=== PATIENT | male | born 1930 | race Caucasian/White ===

== ENCOUNTER 2017-04-20 21:56 | Inpatient (IN) | payer OTHER ==
[~2017-04-20] VITALS: Ht 177.8 cm; Wt 92.2 kg
[~2017-04-20 21:56] MED LIST: FLOMAX0.4 MG PO; LISINOPRIL20 MG PO; NEXIUM40 MG PO; PERCOCET 5/31 TABLET PO; PRINIVIL10 MG PO; SERTRALINE HCL50 MG PO; TAMSULOSIN HCL0.4 MG PO
[2017-04-20] MEDS ORDERED: LEVOTHYROXINE25 MCG PO (22:06)
[2017-04-20] MEDS ORDERED: METFORMIN HCL500 M1 PO (22:06)
[2017-04-20] MEDS ORDERED: CIPROFLOXACIN250 MG PO (22:06)
[2017-04-20] MEDS ORDERED: CELECOXIB100 MG PO (22:06)
[2017-04-20 22:56] LABS: HEMATOCRIT 36.3 % (38.0-50.0); MCH 31.4 PG (29.0-34.0); MCHC 33.6 G/DL (30.0-36.0); MCV 93.3 FL (86-99); MEAN PLAT.VOLUME 10.2 uM^3 (9.0-12.4); PLATELET COUNT 164 K/uL (156-360); RBC DIS.WIDTH-CV 14.1 % (11.8-14.6); RBC DIS.WIDTH-SD 48.1 % (39-53); RED BLOOD COUNT 3.89 M/uL (4.00-5.50); WHITE BLOOD COUNT 7.8 K/uL (4.1-10.2)
[2017-04-20 22:59] LABS: ADD MIUA? YES; BILIRUBIN NEGATIVE; BLOOD MODERATE; COLOR YELLOW ((YELLOW)); GLUCOSE (STRIP) NEGATIVE; KETONES NEGATIVE; LEUKOCYTES NEGATIVE; NITRITE NEGATIVE; PROTEIN (STRIP) 30; SPECIFIC GRAVITY 1.013 (1.000-1.030); UROBILINOGEN 0.2 MG/DL (0.2-1.0)
[2017-04-20 23:04] LABS: BACTERIA NONE SEEN /HPF; EPITHELIAL CELLS RARE /HPF; MUCUS TRACE /LPF; RED BLOOD CELLS 20-30 /HPF (0-5); UCUL ADDED? NO; WHITE BLOOD CELLS 0-5 /HPF (0-5)
[2017-04-20 23:09] LABS: CHLORIDE 105 mEq/L (99-109); POTASSIUM 4.5 mEq/L (3.7-5.4); SODIUM 139 mEq/L (136-147)
[2017-04-20 23:11] LABS: GLUCOSE 123 mg/dL (70-99)
[2017-04-20 23:13] LABS: ANION GAP 14 MEQ/L (2-14); TOTAL BILIRUBIN 0.7 mg/dL (0.0-1.0)
[2017-04-20 23:15] LABS: ALKALINE PHOSPHATASE 42 IU/L (3-129); GFR ESTIMATE (CALCULATED) 19 mL/min/
[2017-04-20 23:16] LABS: UREA NITROGEN (BUN) 40 mg/dL (9-23)
[2017-04-21] MEDS ORDERED: SUPER MULTIVIT1 EACH PO (01:50)
[2017-04-21] MEDS ORDERED: ASCORBIC ACID500 M3 PO (01:50)
[2017-04-21 04:00] LABS: URIC ACID 10.4 mg/dL (3.1-9.2)
[2017-04-21 04:36] LABS: POINT-OF-CARE METER ID UU13113702
[2017-04-21 04:44] VITALS: BP 178/83
[2017-04-21 06:51] LABS: ANION GAP 8 MEQ/L (2-14); CHLORIDE 106 MEQ/L (99-109); GFR ESTIMATE (CALCULATED) 22 mL/min/; GLUCOSE 104 mg/dL (70-99); POTASSIUM 4.7 MEQ/L (3.7-5.4); SAMPLE HEMOLYSIS CHECK 0; SAMPLE ICTERIC CHECK 0; SAMPLE LIPEMIA CHECK 0; SODIUM 142 MEQ/L (136-147); UREA NITROGEN (BUN) 38 mg/dL (9-23)
[2017-04-21 08:30] VITALS: BP 170/85
[2017-04-21 08:49] LABS: POINT-OF-CARE METER ID UU14188625
[2017-04-21 12:21] VITALS: BP 172/83
[2017-04-21 13:05] LABS: POINT-OF-CARE METER ID UU14188625
[2017-04-21 16:00] VITALS: BP 120/60
[2017-04-21 17:42] LABS: POINT-OF-CARE METER ID UU13113717
[2017-04-21 20:00] VITALS: BP 142/67
[2017-04-21 21:24] LABS: POINT-OF-CARE METER ID UU13113717
[2017-04-21 23:57] VITALS: BP 143/69
[2017-04-22 03:41] VITALS: BP 110/72
[2017-04-22 06:21] LABS: HEMATOCRIT 35.1 % (38.0-50.0); MCH 30.8 PG (29.0-34.0); MCHC 32.2 G/DL (30.0-36.0); MCV 95.6 FL (86-99); MEAN PLAT.VOLUME 10.2 uM^3 (9.0-12.4); PLATELET COUNT 179 K/uL (156-360); RBC DIS.WIDTH-CV 14.1 % (11.8-14.6); RBC DIS.WIDTH-SD 49.6 % (39-53); RED BLOOD COUNT 3.67 M/uL (4.00-5.50); WHITE BLOOD COUNT 6.1 K/uL (4.1-10.2)
[2017-04-22 07:40] VITALS: BP 179/71
[2017-04-22 08:42] LABS: POINT-OF-CARE METER ID UU14174225
[2017-04-22 08:59] LABS: POINT-OF-CARE METER ID UU14174225
[2017-04-22 11:58] VITALS: BP 141/75
[2017-04-22 12:03] LABS: POINT-OF-CARE METER ID UU13113717
[2017-04-22 15:49] VITALS: BP 131/67
[2017-04-22 19:07] VITALS: BP 117/61
[2017-04-22 21:14] LABS: POINT-OF-CARE METER ID UU14188625
[2017-04-22 23:49] VITALS: BP 136/92
[2017-04-23 03:56] VITALS: BP 150/71
[2017-04-23 07:07] LABS: ALKALINE PHOSPHATASE 35 IU/L (3-129); ANION GAP 10 MEQ/L (2-14); CHLORIDE 106 MEQ/L (99-109); GFR ESTIMATE (CALCULATED) 38 mL/min/; GLUCOSE 125 mg/dL (70-99); POTASSIUM 3.9 MEQ/L (3.7-5.4); SAMPLE HEMOLYSIS CHECK 0; SAMPLE ICTERIC CHECK 0; SAMPLE LIPEMIA CHECK 0; SODIUM 139 MEQ/L (136-147); TOTAL BILIRUBIN 0.6 MG/DL (0.0-1.0); UREA NITROGEN (BUN) 30 mg/dL (9-23)
[2017-04-23 07:52] VITALS: BP 154/83
[2017-04-23 09:17] LABS: HEMATOCRIT 32.7 % (38.0-50.0); MCH 32.2 PG (29.0-34.0); MCHC 33.3 G/DL (30.0-36.0); MCV 96.5 FL (86-99); MEAN PLAT.VOLUME 10.6 uM^3 (9.0-12.4); PLATELET COUNT 167 K/uL (156-360); RBC DIS.WIDTH-CV 14.2 % (11.8-14.6); RBC DIS.WIDTH-SD 50.1 % (39-53); RED BLOOD COUNT 3.39 M/uL (4.00-5.50); WHITE BLOOD COUNT 6.5 K/uL (4.1-10.2)
[2017-04-23 11:28] VITALS: BP 152/80
[2017-04-23 15:50] VITALS: BP 153/79
[2017-04-23 18:46] VITALS: BP 135/67
[2017-04-24 00:27] VITALS: BP 134/72
[2017-04-24 04:00] VITALS: BP 118/59
[2017-04-24 07:47] VITALS: BP 130/75
[2017-04-24 10:00] LABS: ANION GAP 9 MEQ/L (2-14); CHLORIDE 109 MEQ/L (99-109); SAMPLE HEMOLYSIS CHECK 0; SAMPLE ICTERIC CHECK 0; SAMPLE LIPEMIA CHECK 0; SODIUM 140 MEQ/L (136-147)
[2017-04-24 10:10] LABS: GFR ESTIMATE (CALCULATED) 41 mL/min/; UREA NITROGEN (BUN) 27 mg/dL (9-23)
[2017-04-24 10:11] LABS: GLUCOSE 191 mg/dL (70-99)
[2017-04-24 15:55] VITALS: BP 141/69
[2017-04-24 23:40] VITALS: BP 136/68
[2017-04-25 06:31] LABS: EOSINOPHIL (%) 2.6 % (0-5); EOSINOPHIL COUNT 0.2 K/uL (0-0.3); HEMATOCRIT 32.2 % (38.0-50.0); IMMATURE GRANULOCYTE (%) 1.5 % (0.0-0.7); IMMATURE GRANULOCYTE COUNT 0.1 K/uL; INSTRUMENT ABS NEUTROPHIL CT 5.4 K/uL; LYMPHOCYTE COUNT 0.6 K/uL (1.0-2.8); MCH 30.7 PG (29.0-34.0); MCV 96.1 FL (86-99); MEAN PLAT.VOLUME 10.4 uM^3 (9.0-12.4); MONOCYTE (%) 14.4 % (3-12); MONOCYTE COUNT 1.1 K/uL (0-0.8); NEUTROPHIL (%) 72.9 % (45-76); NEUTROPHIL COUNT 5.4 K/uL (1.8-6.4); PLATELET COUNT 191 K/uL (156-360); RBC DIS.WIDTH-CV 14.1 % (11.8-14.6); RBC DIS.WIDTH-SD 49.7 % (39-53); RED BLOOD COUNT 3.35 M/uL (4.00-5.50); WHITE BLOOD COUNT 7.4 K/uL (4.1-10.2)
[2017-04-25 06:52] VITALS: BP 137/67
[2017-04-25 08:24] LABS: ANION GAP 11 MEQ/L (2-14); CHLORIDE 108 MEQ/L (99-109); GFR ESTIMATE (CALCULATED) 34 mL/min/; POTASSIUM 3.8 MEQ/L (3.7-5.4); SAMPLE HEMOLYSIS CHECK 0; SAMPLE ICTERIC CHECK 0; SAMPLE LIPEMIA CHECK 0; SODIUM 140 MEQ/L (136-147); UREA NITROGEN (BUN) 32 mg/dL (9-23)
[2017-04-25 08:25] LABS: GLUCOSE 113 mg/dL (70-99)
[2017-04-25 15:10] VITALS: BP 157/73
[2017-04-26 00:11] VITALS: BP 127/64
[2017-04-26 07:17] VITALS: BP 157/65
[2017-04-26 09:23] LABS: HEMATOCRIT 33.9 % (38.0-50.0); MCHC 34.2 G/DL (30.0-36.0); MCV 93.6 FL (86-99); MEAN PLAT.VOLUME 10.3 uM^3 (9.0-12.4); RBC DIS.WIDTH-CV 13.6 % (11.8-14.6); RBC DIS.WIDTH-SD 46.8 % (39-53); RED BLOOD COUNT 3.62 M/uL (4.00-5.50); WHITE BLOOD COUNT 6.1 K/uL (4.1-10.2)
[2017-04-26 09:31] LABS: PLATELET COUNT 254 K/uL (156-360)
[2017-04-26 09:50] LABS: ANION GAP 12 MEQ/L (2-14); CHLORIDE 109 MEQ/L (99-109); GFR ESTIMATE (CALCULATED) 47 mL/min/; POTASSIUM 3.9 MEQ/L (3.7-5.4); SAMPLE HEMOLYSIS CHECK 0; SAMPLE ICTERIC CHECK 0; SAMPLE LIPEMIA CHECK 0; SODIUM 140 MEQ/L (136-147); UREA NITROGEN (BUN) 37 mg/dL (9-23)
[2017-04-26 09:55] LABS: GLUCOSE 180 mg/dL (70-99)
[2017-04-26 15:51] VITALS: BP 146/76
[2017-04-27 00:15] VITALS: BP 154/81
[2017-04-27 08:00] VITALS: BP 143/75
[2017-04-27 16:00] VITALS: BP 143/90
[2017-04-28 06:22] LABS: HEMATOCRIT 31.3 % (38.0-50.0); MCH 31.8 PG (29.0-34.0); MCHC 34.2 G/DL (30.0-36.0); MCV 93.2 FL (86-99); PLATELET COUNT 297 K/uL (156-360); RBC DIS.WIDTH-CV 13.8 % (11.8-14.6); RBC DIS.WIDTH-SD 47.1 % (39-53); RED BLOOD COUNT 3.36 M/uL (4.00-5.50); WHITE BLOOD COUNT 7.7 K/uL (4.1-10.2)
[2017-04-28 07:18] LABS: ALKALINE PHOSPHATASE 41 IU/L (3-129); AMYLASE 10 IU/L (1-118); ANION GAP 10 MEQ/L (2-14); CHLORIDE 112 MEQ/L (99-109); DIRECT BILIRUBIN 0.1 mg/dL (0.0-0.3); GFR ESTIMATE (CALCULATED) 56 mL/min/; GLUCOSE 160 mg/dL (70-99); IRON 88 MCG/DL (35-150); POTASSIUM 3.3 MEQ/L (3.7-5.4); SAMPLE HEMOLYSIS CHECK 0; SAMPLE ICTERIC CHECK 0; SAMPLE LIPEMIA CHECK 0; SODIUM 144 MEQ/L (136-147); UREA NITROGEN (BUN) 39 mg/dL (9-23)
[2017-04-28 07:19] LABS: TOTAL BILIRUBIN 0.2 MG/DL (0.0-1.0)
[2017-04-28 07:36] VITALS: BP 145/89
[2017-04-28 08:37] LABS: FERRITIN 237 NG/ML (22-322)
[2017-04-28 08:58] LABS: MAGNESIUM 1.8 mg/dl (1.3-2.7)
[2017-04-28 13:35] LABS: C DIFF TOXIN NEGATIVE (NEGATIVE)
[2017-04-28 13:37] LABS: PROBE CHECK PASS; SPECIMEN PROCESSING CONTROL PASS
[2017-04-28 16:00] VITALS: BP 143/78
[2017-04-29 06:32] LABS: ANION GAP 7 MEQ/L (2-14); CHLORIDE 113 MEQ/L (99-109); GFR ESTIMATE (CALCULATED) 56 mL/min/; GLUCOSE 129 mg/dL (70-99); POTASSIUM 3.7 MEQ/L (3.7-5.4); SAMPLE HEMOLYSIS CHECK 0; SAMPLE ICTERIC CHECK 0; SAMPLE LIPEMIA CHECK 0; SODIUM 146 MEQ/L (136-147); UREA NITROGEN (BUN) 29 mg/dL (9-23)
[2017-04-29 07:33] VITALS: BP 190/93
[2017-04-29 16:11] VITALS: BP 169/82
[2017-04-30 00:16] VITALS: BP 148/80
[2017-04-30 07:14] LABS: ANION GAP 8 MEQ/L (2-14); CHLORIDE 109 MEQ/L (99-109); GFR ESTIMATE (CALCULATED) > 59 mL/min/; GLUCOSE 118 mg/dL (70-99); POTASSIUM 3.4 MEQ/L (3.7-5.4); SAMPLE HEMOLYSIS CHECK 0; SAMPLE ICTERIC CHECK 0; SAMPLE LIPEMIA CHECK 0; SODIUM 145 MEQ/L (136-147); UREA NITROGEN (BUN) 24 mg/dL (9-23)
[2017-04-30 08:01] VITALS: BP 171/84
[2017-04-30 16:13] VITALS: BP 155/92
[2017-05-01 00:04] VITALS: BP 177/89
[2017-05-01 01:56] VITALS: BP 168/56
[2017-05-01 07:56] VITALS: BP 184/88
[2017-05-01 16:20] VITALS: BP 140/80
[2017-05-01 23:34] VITALS: BP 176/88
[2017-05-02 05:58] LABS: HEMATOCRIT 34.3 % (38.0-50.0); MCH 31.4 PG (29.0-34.0); MCHC 33.5 G/DL (30.0-36.0); MCV 93.7 FL (86-99); MEAN PLAT.VOLUME 9.6 uM^3 (9.0-12.4); PLATELET COUNT 265 K/uL (156-360); RBC DIS.WIDTH-CV 13.6 % (11.8-14.6); RBC DIS.WIDTH-SD 46.2 % (39-53); RED BLOOD COUNT 3.66 M/uL (4.00-5.50); WHITE BLOOD COUNT 9.1 K/uL (4.1-10.2)
[2017-05-02 06:18] LABS: ANION GAP 7 MEQ/L (2-14); CHLORIDE 106 MEQ/L (99-109); GFR ESTIMATE (CALCULATED) > 59 mL/min/; GLUCOSE 110 mg/dL (70-99); POTASSIUM 3.2 MEQ/L (3.7-5.4); SAMPLE HEMOLYSIS CHECK 0; SAMPLE ICTERIC CHECK 0; SAMPLE LIPEMIA CHECK 0; SODIUM 143 MEQ/L (136-147); UREA NITROGEN (BUN) 13 mg/dL (9-23)
[2017-05-02 07:31] VITALS: BP 170/104
[2017-05-02 15:31] VITALS: BP 153/101
[2017-05-02 23:25] VITALS: BP 158/91
[2017-05-03 07:30] LABS: ANION GAP 9 MEQ/L (2-14); CHLORIDE 109 MEQ/L (99-109); GFR ESTIMATE (CALCULATED) > 59 mL/min/; GLUCOSE 127 mg/dL (70-99); POTASSIUM 3.7 MEQ/L (3.7-5.4); SAMPLE HEMOLYSIS CHECK 0; SAMPLE ICTERIC CHECK 0; SAMPLE LIPEMIA CHECK 0; SODIUM 144 MEQ/L (136-147); UREA NITROGEN (BUN) 9 mg/dL (9-23)
[2017-05-03 07:33] VITALS: BP 161/88
[2017-05-03 15:49] VITALS: BP 149/93
[2017-05-04 00:10] VITALS: BP 150/70
[2017-05-04 07:47] VITALS: BP 173/88
[2017-05-04 16:19] VITALS: BP 121/62
[2017-05-05 00:24] VITALS: BP 140/77
[2017-05-05 06:12] LABS: MCHC 33.9 G/DL (30.0-36.0); MCV 94.5 FL (86-99); RBC DIS.WIDTH-CV 14.3 % (11.8-14.6); RBC DIS.WIDTH-SD 49.6 % (39-53); RED BLOOD COUNT 3.28 M/uL (4.00-5.50); WHITE BLOOD COUNT 6.9 K/uL (4.1-10.2)
[2017-05-05 06:45] LABS: ANION GAP 4 MEQ/L (2-14); CHLORIDE 106 MEQ/L (99-109); GFR ESTIMATE (CALCULATED) 56 mL/min/; GLUCOSE 108 mg/dL (70-99); POTASSIUM 3.6 MEQ/L (3.7-5.4); SAMPLE HEMOLYSIS CHECK 0; SAMPLE ICTERIC CHECK 0; SAMPLE LIPEMIA CHECK 0; SODIUM 139 MEQ/L (136-147); UREA NITROGEN (BUN) 12 mg/dL (9-23)
[2017-05-05 07:51] VITALS: BP 158/86
[2017-05-05 07:59] LABS: MEAN PLAT.VOLUME 10.5 uM^3 (9.0-12.4); PLAT.SUFFICIENCY ADEQUATE
[2017-05-05 08:01] LABS: PLATELET COUNT 165 K/uL (156-360)
[2017-05-05] MEDS ORDERED: AMLODIPINE BESY10 MG PO (14:10)
[2017-05-05] MEDS ORDERED: BISACODYL5 MG PO (14:12)
[2017-05-05] MEDS ORDERED: POLYETHYLENE GL17 GM PO (14:12)
[2017-05-05] MEDS ORDERED: AMITIZA24 MICROGR PO (14:12)
[2017-05-05] MEDS ORDERED: COLCHICINE0.6 M1 PO (14:14)
== END 2017-05-05 16:16 | DRG 683 ==
LOC: EME 21:56 → 5SOUTH 04-21 02:43 → EDOF 04-21 02:43 → CANRESERV 04-21 02:51 → ENRESERV 04-21 02:51 → 5SOUTH 04-21 04:23
PROVIDERS: Hospitalist; Internal Medicine; Nurse Practitioner Adult Health; Specialist
PROC: 0DBP8ZX Excision of Rectum, Via Natural or Artificial Opening Endoscopic, Diagnostic (ICD-10-PCS; principal; 2017-05-02)
PROC: 0DBN8ZX Excision of Sigmoid Colon, Via Natural or Artificial Opening Endoscopic, Diagnostic (ICD-10-PCS; principal; 2017-05-02)
PROC: 0DBM8ZX Excision of Descending Colon, Via Natural or Artificial Opening Endoscopic, Diagnostic (ICD-10-PCS; principal; 2017-05-02)
PROC: 0DBL8ZZ Excision of Transverse Colon, Via Natural or Artificial Opening Endoscopic (ICD-10-PCS; principal; 2017-05-02)
PROC: 0DBK8ZX Excision of Ascending Colon, Via Natural or Artificial Opening Endoscopic, Diagnostic (ICD-10-PCS; principal; 2017-05-02)
PROC: 0DBH8ZX Excision of Cecum, Via Natural or Artificial Opening Endoscopic, Diagnostic (ICD-10-PCS; principal; 2017-05-02)
DX: N17.9 Acute kidney failure, unspecified (principal); N40.1 Benign prostatic hyperplasia with lower urinary tract symptoms; N13.30 Unspecified hydronephrosis; N39.0 Urinary tract infection, site not specified; E03.9 Hypothyroidism, unspecified; K21.9 Gastro-esophageal reflux disease without esophagitis; N32.89 Other specified disorders of bladder; R33.9 Retention of urine, unspecified; I12.9 Hypertensive chronic kidney disease with stage 1 through stage 4 chronic kidney disease, or unspecified chronic kidney disease; L03.115 Cellulitis of right lower limb; N32.0 Bladder-neck obstruction; D64.9 Anemia, unspecified; M19.90 Unspecified osteoarthritis, unspecified site; K59.09 Other constipation; F32.9 Major depressive disorder, single episode, unspecified; N18.3 Chronic kidney disease, stage 3 (moderate); E11.22 Type 2 diabetes mellitus with diabetic chronic kidney disease; N13.8 Other obstructive and reflux uropathy; M10.9 Gout, unspecified; N28.1 Cyst of kidney, acquired; R31.29 Other microscopic hematuria; E66.9 Obesity, unspecified; K40.90 Unilateral inguinal hernia, without obstruction or gangrene, not specified as recurrent; G43.909 Migraine, unspecified, not intractable, without status migrainosus; K64.8 Other hemorrhoids; K57.30 Diverticulosis of large intestine without perforation or abscess without bleeding; K63.5 Polyp of colon; Z68.29 Body mass index [BMI] 29.0-29.9, adult; Z96.642 Presence of left artificial hip joint; Z87.01 Personal history of pneumonia (recurrent); R33.8 Other retention of urine; N39.490 Overflow incontinence; K59.39 Other megacolon
CPT/HCPCS: 71010; 73560; 74000; 74020; 74176; 76770; 80048; 80048 91; 80053; 80069; 80076; 81003; 82150; 82436; 82728; 82746; 82948; 83540; 83735; 84133; 84300; 84443; 84466; 84550; 85025; 85027; 87177; 87493; 87506; 88305; 93970; 97530 GO; 97530 GP; 99281; 99285; J0696; J1644; J1815; J1885; J2405; J2765; J2920; J2930; J3480; J7030; J7042; J7050; J7512

== ENCOUNTER 2017-10-18 11:12 | Inpatient (IN) | payer OTHER ==
[~2017-10-18] VITALS: Ht 170.2 cm; Wt 90.0 kg
[~2017-10-18 11:12] MED LIST changes: +AMITIZA24 MICROGR PO; +AMLODIPINE BESY10 MG PO; +ASCORBIC ACID500 M3 PO; +BISACODYL5 MG PO; +CELECOXIB100 MG PO; +CIPROFLOXACIN250 MG PO; +COLCHICINE0.6 M1 PO; +LEVOTHYROXINE25 MCG PO; +METFORMIN HCL500 M1 PO; +POLYETHYLENE GL17 GM PO; +SUPER MULTIVIT1 EACH PO
[2017-10-18 12:13] LABS: BASOPHIL (%) 0.2 % (0-1); EOSINOPHIL (%) 0.2 % (0-5); HEMATOCRIT 36.1 % (38.0-50.0); HEMOGLOBIN 12.3 G/DL (12.5-16.6); IMMATURE GRANULOCYTE (%) 0.7 % (0.0-0.7); LYMPHOCYTE (%) 5.5 % (15-42); LYMPHOCYTE COUNT 0.6 K/uL (1.0-2.8); MCH 30.1 PG (29.0-34.0); MCHC 34.1 G/DL (30.0-36.0); MCV 88.3 FL (86-99); MONOCYTE (%) 15.7 % (3-12); MONOCYTE COUNT 1.8 K/uL (0-0.8); NEUTROPHIL (%) 77.7 % (45-76); NEUTROPHIL COUNT 8.9 K/uL (1.8-6.4); PLATELET COUNT 164 K/uL (156-360); RBC DIS.WIDTH-CV 15.6 % (11.8-14.6); RBC DIS.WIDTH-SD 50.6 % (39-53); RED BLOOD COUNT 4.09 M/uL (4.00-5.50); WHITE BLOOD COUNT 11.5 K/uL (4.1-10.2)
[2017-10-18 12:24] LABS: ALBUMIN 3.9 g/dL (3.2-4.8); CHLORIDE 101 mEq/L (99-109); MAGNESIUM 1.7 mg/dL (1.3-2.7); POTASSIUM 4.6 mEq/L (3.7-5.4); SODIUM 135 mEq/L (136-147)
[2017-10-18 12:26] LABS: GLUCOSE 151 mg/dL (70-99); TOTAL PROTEIN 6.8 g/dL (6.4-8.3)
[2017-10-18 12:28] LABS: TOTAL BILIRUBIN 0.8 mg/dL (0.0-1.0)
[2017-10-18 12:30] LABS: ALKALINE PHOSPHATASE 65 IU/L (3-129); CREATININE 2.4 mg/dL (0.6-1.3); GFR ESTIMATE (CALCULATED) 27 mL/min/ (58.99-99999)
[2017-10-18 12:31] LABS: AST (GOT) 20 IU/L (2-34); UREA NITROGEN (BUN) 40 mg/dL (9-23)
[2017-10-18 12:33] LABS: ALT (GPT) 23 IU/L (3-49); LIPASE 4 U/L (1.0-51.0)
[2017-10-18 12:42] LABS: APPEARANCE TURBID ((CLEAR)); BILIRUBIN NEGATIVE; BLOOD SMALL; COLOR AMBER ((YELLOW)); GLUCOSE (STRIP) NEGATIVE; KETONES NEGATIVE; LEUKOCYTES MODERATE; NITRITE NEGATIVE; PROTEIN (STRIP) >=500; SPECIFIC GRAVITY 1.018 (1.000-1.030); UROBILINOGEN 0.2 MG/DL (0.2-1.0)
[2017-10-18 13:40] LABS: THYROTROPIN (TSH) 3.8 MIU/L (0.4-5.5)
[2017-10-18 14:38] LABS: EPITHELIAL CELLS RARE /HPF; RED BLOOD CELLS NONE SEEN /HPF (0-5); WHITE BLOOD CELLS TNTC /HPF (0-5)
[2017-10-18 14:39] LABS: MUCUS RARE /LPF
[2017-10-18 14:41] LABS: BACTERIA NONE SEEN /HPF; UCUL ADDED? YES
[2017-10-18] MEDS ORDERED: AMLODIPINE BESY10 MG PO (16:02)
[2017-10-18] MEDS ORDERED: AUGMENTIN875 MG PO (16:02)
[2017-10-18] MEDS ORDERED: PHILLIPS'400 MG/5 M PO (16:03)
[2017-10-18] MEDS ORDERED: DULCOLAX10 MG PR (16:03)
[2017-10-18] MEDS ORDERED: PEPCID20 MG PO (16:04)
[2017-10-18] MEDS ORDERED: PROBIOTIC1 EAC1 PO (16:05)
[2017-10-18] MEDS ORDERED: FINASTERIDE5 MG PO (16:05)
[2017-10-18] MEDS ORDERED: TYLENOL REGULA325 MG PO (16:06)
[2017-10-18] MEDS ORDERED: FLEET ENEMA-AD118 ML PR (16:53)
[2017-10-18] MEDS ORDERED: HIPREX1 GM PO (16:54)
[2017-10-18] MEDS ORDERED: LASIX40 MG PO (16:54)
[2017-10-18] MEDS ORDERED: SYNTHROID25 MCG PO (16:55)
[2017-10-18 20:39] VITALS: BP 123/69
[2017-10-19] VITALS (8 sets, daily range): BP systolic 117–135; BP diastolic 59–69
[2017-10-19 06:03] LABS: BASOPHIL (%) 0.2 % (0-1); EOSINOPHIL (%) 0.7 % (0-5); EOSINOPHIL COUNT 0.1 K/uL (0-0.3); HEMATOCRIT 33.5 % (38.0-50.0); HEMOGLOBIN 11.2 G/DL (12.5-16.6); LYMPHOCYTE (%) 6.5 % (15-42); LYMPHOCYTE COUNT 0.6 K/uL (1.0-2.8); MCH 29.6 PG (29.0-34.0); MCHC 33.4 G/DL (30.0-36.0); MCV 88.6 FL (86-99); MONOCYTE (%) 15.2 % (3-12); MONOCYTE COUNT 1.3 K/uL (0-0.8); NEUTROPHIL (%) 76.4 % (45-76); NEUTROPHIL COUNT 6.6 K/uL (1.8-6.4); PLATELET COUNT 151 K/uL (156-360); RBC DIS.WIDTH-CV 15.7 % (11.8-14.6); RED BLOOD COUNT 3.78 M/uL (4.00-5.50); WHITE BLOOD COUNT 8.6 K/uL (4.1-10.2)
[2017-10-19 06:33] LABS: CHLORIDE 104 MEQ/L (99-109); CREATININE 2.2 MG/DL (0.6-1.3); GFR ESTIMATE (CALCULATED) 30 mL/min/ (58.99-99999); GLUCOSE 153 mg/dL (70-99); POTASSIUM 4.1 MEQ/L (3.7-5.4); SODIUM 138 MEQ/L (136-147); UREA NITROGEN (BUN) 41 mg/dL (9-23)
[2017-10-20 06:17] LABS: BASOPHIL (%) 0.3 % (0-1); EOSINOPHIL (%) 2.3 % (0-5); EOSINOPHIL COUNT 0.1 K/uL (0-0.3); HEMATOCRIT 31.7 % (38.0-50.0); HEMOGLOBIN 10.4 G/DL (12.5-16.6); IMMATURE GRANULOCYTE (%) 1.3 % (0.0-0.7); LYMPHOCYTE (%) 11.5 % (15-42); LYMPHOCYTE COUNT 0.7 K/uL (1.0-2.8); MCH 29.5 PG (29.0-34.0); MCHC 32.8 G/DL (30.0-36.0); MCV 90.1 FL (86-99); MONOCYTE COUNT 1.2 K/uL (0-0.8); NEUTROPHIL (%) 65.6 % (45-76); PLATELET COUNT 178 K/uL (156-360); RBC DIS.WIDTH-CV 15.9 % (11.8-14.6); RBC DIS.WIDTH-SD 52.4 % (39-53); RED BLOOD COUNT 3.52 M/uL (4.00-5.50); WHITE BLOOD COUNT 6.2 K/uL (4.1-10.2)
[2017-10-20 06:41] LABS: CHLORIDE 109 MEQ/L (99-109); GFR ESTIMATE (CALCULATED) 34 mL/min/ (58.99-99999); GLUCOSE 119 mg/dL (70-99); MAGNESIUM 1.6 mg/dl (1.3-2.7); PHOSPHORUS 3.8 mg/dL (2.5-4.9); POTASSIUM 3.7 MEQ/L (3.7-5.4); SODIUM 139 MEQ/L (136-147); UREA NITROGEN (BUN) 46 mg/dL (9-23)
[2017-10-20 08:01] VITALS: BP 128/69
[2017-10-20 13:26] VITALS: BP 125/63
[2017-10-20 17:33] VITALS: BP 165/79
[2017-10-20 20:03] VITALS: BP 129/61
[2017-10-21 00:16] VITALS: BP 151/71
[2017-10-21 04:13] VITALS: BP 144/74
[2017-10-21 05:52] LABS: BASOPHIL (%) 0.2 % (0-1); EOSINOPHIL (%) 2.8 % (0-5); EOSINOPHIL COUNT 0.1 K/uL (0-0.3); HEMATOCRIT 32.2 % (38.0-50.0); HEMOGLOBIN 10.3 G/DL (12.5-16.6); IMMATURE GRANULOCYTE (%) 1.4 % (0.0-0.7); LYMPHOCYTE (%) 12.6 % (15-42); LYMPHOCYTE COUNT 0.6 K/uL (1.0-2.8); MCH 28.9 PG (29.0-34.0); MCV 90.2 FL (86-99); MONOCYTE (%) 16.2 % (3-12); MONOCYTE COUNT 0.8 K/uL (0-0.8); NEUTROPHIL (%) 66.8 % (45-76); NEUTROPHIL COUNT 3.3 K/uL (1.8-6.4); PLATELET COUNT 202 K/uL (156-360); RBC DIS.WIDTH-CV 15.6 % (11.8-14.6); RBC DIS.WIDTH-SD 51.6 % (39-53); RED BLOOD COUNT 3.57 M/uL (4.00-5.50); WHITE BLOOD COUNT 4.9 K/uL (4.1-10.2)
[2017-10-21 06:20] LABS: CHLORIDE 111 MEQ/L (99-109); GFR ESTIMATE (CALCULATED) 47 mL/min/ (58.99-99999); GLUCOSE 114 mg/dL (70-99); POTASSIUM 3.8 MEQ/L (3.7-5.4); SODIUM 141 MEQ/L (136-147); UREA NITROGEN (BUN) 37 mg/dL (9-23)
[2017-10-21 06:22] LABS: CREATININE 1.5 MG/DL (0.6-1.3)
[2017-10-21 06:56] VITALS: BP 151/74
[2017-10-21 11:00] VITALS: BP 154/85
[2017-10-21 15:31] VITALS: BP 147/76
[2017-10-21 19:52] VITALS: BP 148/72
[2017-10-22 00:07] VITALS: BP 155/80
[2017-10-22 04:09] VITALS: BP 166/80
[2017-10-22 05:37] LABS: BASOPHIL (%) 0.2 % (0-1); EOSINOPHIL COUNT 0.2 K/uL (0-0.3); HEMOGLOBIN 10.5 G/DL (12.5-16.6); IMMATURE GRANULOCYTE (%) 1.5 % (0.0-0.7); LYMPHOCYTE (%) 12.5 % (15-42); LYMPHOCYTE COUNT 0.7 K/uL (1.0-2.8); MCH 29.4 PG (29.0-34.0); MCHC 32.8 G/DL (30.0-36.0); MCV 89.6 FL (86-99); MONOCYTE (%) 16.4 % (3-12); MONOCYTE COUNT 0.9 K/uL (0-0.8); NEUTROPHIL (%) 66.4 % (45-76); NEUTROPHIL COUNT 3.5 K/uL (1.8-6.4); PLATELET COUNT 202 K/uL (156-360); RBC DIS.WIDTH-CV 15.6 % (11.8-14.6); RBC DIS.WIDTH-SD 51.5 % (39-53); RED BLOOD COUNT 3.57 M/uL (4.00-5.50); WHITE BLOOD COUNT 5.3 K/uL (4.1-10.2)
[2017-10-22 06:01] LABS: CHLORIDE 112 MEQ/L (99-109); CREATININE 1.3 MG/DL (0.6-1.3); GFR ESTIMATE (CALCULATED) 56 mL/min/ (58.99-99999); GLUCOSE 113 mg/dL (70-99); MAGNESIUM 1.6 mg/dl (1.3-2.7); PHOSPHORUS 3.6 mg/dL (2.5-4.9); POTASSIUM 3.6 MEQ/L (3.7-5.4); SODIUM 143 MEQ/L (136-147); UREA NITROGEN (BUN) 28 mg/dL (9-23)
[2017-10-22 07:15] VITALS: BP 149/116
[2017-10-22 10:12] LABS: C DIFF TOXIN NEGATIVE (NEGATIVE)
[2017-10-22 11:05] VITALS: BP 144/68
[2017-10-22 15:33] VITALS: BP 155/84
[2017-10-22] MEDS ORDERED: METOPROLOL SUCC50 MG PO (16:03)
[2017-10-22] MEDS ORDERED: CEFTIN500 MG PO (16:06)
[2017-10-22 19:57] VITALS: BP 138/80
[2017-10-23 00:43] VITALS: BP 149/72
[2017-10-23 04:21] VITALS: BP 156/70
[2017-10-23 07:47] LABS: BASOPHIL (%) 0.3 % (0-1); EOSINOPHIL (%) 3.1 % (0-5); EOSINOPHIL COUNT 0.2 K/uL (0-0.3); HEMOGLOBIN 10.8 G/DL (12.5-16.6); IMMATURE GRANULOCYTE (%) 1.9 % (0.0-0.7); LYMPHOCYTE (%) 13.3 % (15-42); LYMPHOCYTE COUNT 0.8 K/uL (1.0-2.8); MCH 29.1 PG (29.0-34.0); MCHC 32.7 G/DL (30.0-36.0); MCV 88.9 FL (86-99); MONOCYTE (%) 12.8 % (3-12); MONOCYTE COUNT 0.8 K/uL (0-0.8); NEUTROPHIL (%) 68.6 % (45-76); NEUTROPHIL COUNT 4.2 K/uL (1.8-6.4); PLATELET COUNT 219 K/uL (156-360); RBC DIS.WIDTH-CV 15.5 % (11.8-14.6); RBC DIS.WIDTH-SD 50.1 % (39-53); RED BLOOD COUNT 3.71 M/uL (4.00-5.50); WHITE BLOOD COUNT 6.2 K/uL (4.1-10.2)
[2017-10-23 07:52] LABS: CHLORIDE 107 MEQ/L (99-109); CREATININE 1.3 MG/DL (0.6-1.3); GFR ESTIMATE (CALCULATED) 56 mL/min/ (58.99-99999); GLUCOSE 109 mg/dL (70-99); POTASSIUM 3.4 MEQ/L (3.7-5.4); SODIUM 141 MEQ/L (136-147); UREA NITROGEN (BUN) 21 mg/dL (9-23)
[2017-10-23 08:19] VITALS: BP 134/81
[2017-10-23 12:07] VITALS: BP 149/68
== END 2017-10-23 16:10 | DRG 690 ==
LOC: EME 11:12 → EDOF 15:38 → 3EAST 15:38 → ENRESERV 15:39 → 3EAST 18:21 → ENRESERV 10-19 15:25 → 5EAST 10-19 18:05 → ENPENDDIS 10-23 11:01 → 5EAST 10-23 16:10
PROVIDERS: Emergency Medicine; Family Medicine Sports Medicine; Internal Medicine Nephrology
DX: N13.6 Pyonephrosis (principal); N17.9 Acute kidney failure, unspecified; R31.29 Other microscopic hematuria; E86.0 Dehydration; I12.9 Hypertensive chronic kidney disease with stage 1 through stage 4 chronic kidney disease, or unspecified chronic kidney disease; N18.3 Chronic kidney disease, stage 3 (moderate); N13.8 Other obstructive and reflux uropathy; D64.9 Anemia, unspecified; N40.1 Benign prostatic hyperplasia with lower urinary tract symptoms; R33.8 Other retention of urine; N28.1 Cyst of kidney, acquired; E87.1 Hypo-osmolality and hyponatremia; E87.6 Hypokalemia; N31.9 Neuromuscular dysfunction of bladder, unspecified; G30.9 Alzheimer's disease, unspecified; F02.80 Dementia in other diseases classified elsewhere, unspecified severity, without behavioral disturbance, psychotic disturbance, mood disturbance, and anxiety; K59.00 Constipation, unspecified; R21 Rash and other nonspecific skin eruption; G43.909 Migraine, unspecified, not intractable, without status migrainosus; E78.5 Hyperlipidemia, unspecified; R19.7 Diarrhea, unspecified; E66.9 Obesity, unspecified; Z68.30 Body mass index [BMI] 30.0-30.9, adult; K21.9 Gastro-esophageal reflux disease without esophagitis; M19.90 Unspecified osteoarthritis, unspecified site; E03.9 Hypothyroidism, unspecified; F41.9 Anxiety disorder, unspecified; Z87.01 Personal history of pneumonia (recurrent); Z87.440 Personal history of urinary (tract) infections; Z96.642 Presence of left artificial hip joint; Z82.49 Family history of ischemic heart disease and other diseases of the circulatory system
CPT/HCPCS: 74176; 80048; 80053; 81003; 83605; 83690; 83735; 84100; 84443; 85025; 87040; 87077; 87086; 87177; 87186; 87493; 87506; 97530 GO; 99281; 99284; J0696; J1650; J7030

== ENCOUNTER 2017-11-11 19:36 | Inpatient (IN) | payer OTHER ==
[~2017-11-11] VITALS: Ht 177.8 cm; Wt 86.8 kg
[~2017-11-11 19:36] MED LIST changes: +AUGMENTIN875 MG PO; +CEFTIN500 MG PO; +DULCOLAX10 MG PR; +FINASTERIDE5 MG PO; +FLEET ENEMA-AD118 ML PR; +HIPREX1 GM PO; +LASIX40 MG PO; +METOPROLOL SUCC50 MG PO; +PEPCID20 MG PO; +PHILLIPS'400 MG/5 M PO; +PROBIOTIC1 EAC1 PO; +SYNTHROID25 MCG PO; +TYLENOL REGULA325 MG PO
[2017-11-11 21:22] LABS: BASOPHIL (%) 0.2 % (0-1); EOSINOPHIL (%) 1.9 % (0-5); EOSINOPHIL COUNT 0.1 K/uL (0-0.3); HEMATOCRIT 31.1 % (38.0-50.0); HEMOGLOBIN 10.5 G/DL (12.5-16.6); IMMATURE GRANULOCYTE (%) 1.3 % (0.0-0.7); LYMPHOCYTE (%) 11.6 % (15-42); LYMPHOCYTE COUNT 0.7 K/uL (1.0-2.8); MCH 29.3 PG (29.0-34.0); MCHC 33.8 G/DL (30.0-36.0); MCV 86.9 FL (86-99); MONOCYTE (%) 12.4 % (3-12); MONOCYTE COUNT 0.8 K/uL (0-0.8); NEUTROPHIL (%) 72.6 % (45-76); NEUTROPHIL COUNT 4.6 K/uL (1.8-6.4); PLATELET COUNT 217 K/uL (156-360); RBC DIS.WIDTH-CV 15.6 % (11.8-14.6); RBC DIS.WIDTH-SD 50.1 % (39-53); RED BLOOD COUNT 3.58 M/uL (4.00-5.50); WHITE BLOOD COUNT 6.3 K/uL (4.1-10.2)
[2017-11-11 21:27] LABS: APPEARANCE SL.HAZY ((CLEAR)); BILIRUBIN NEGATIVE; BLOOD SMALL; COLOR YELLOW ((YELLOW)); GLUCOSE (STRIP) NEGATIVE; KETONES NEGATIVE; LEUKOCYTES MODERATE; NITRITE POSITIVE; PROTEIN (STRIP) 30; SPECIFIC GRAVITY 1.013 (1.000-1.030); UROBILINOGEN 0.2 MG/DL (0.2-1.0)
[2017-11-11 21:31] LABS: INTER. NORMALIZED RATIO 1.2
[2017-11-11 21:35] LABS: ALBUMIN 3.3 g/dL (3.2-4.8); CHLORIDE 108 mEq/L (99-109); POTASSIUM 3.5 mEq/L (3.7-5.4); SODIUM 138 mEq/L (136-147)
[2017-11-11 21:38] LABS: GLUCOSE 117 mg/dL (70-99)
[2017-11-11 21:39] LABS: BACTERIA RARE /HPF; EPITHELIAL CELLS NONE SEEN /HPF; MUCUS TRACE /LPF; RED BLOOD CELLS 0-5 /HPF (0-5); UCUL ADDED? YES; WHITE BLOOD CELLS TNTC /HPF (0-5)
[2017-11-11 21:40] LABS: TOTAL BILIRUBIN 0.4 mg/dL (0.0-1.0)
[2017-11-11 21:41] LABS: ALKALINE PHOSPHATASE 52 IU/L (3-129); CREATININE 1.3 mg/dL (0.6-1.3); GFR ESTIMATE (CALCULATED) 56 mL/min/ (58.99-99999)
[2017-11-11 21:42] LABS: UREA NITROGEN (BUN) 15 mg/dL (9-23)
[2017-11-11 21:43] LABS: AST (GOT) 13 IU/L (2-34)
[2017-11-11 21:44] LABS: ALT (GPT) 10 IU/L (3-49)
[2017-11-11 21:45] LABS: LIPASE 13 U/L (1.0-51.0)
[2017-11-11 21:46] LABS: TROP-I INTERPRETATION NEGATIVE; TROPONIN-I < 0.01 ng/mL (0.0-0.30)
[2017-11-12] MEDS ORDERED: KLOR-CON M1010 MEQ PO (00:24)
[2017-11-12] MEDS ORDERED: SIMETHICONE80 MG PO (00:37)
[2017-11-12 02:28] VITALS: BP 144/70
[2017-11-12 05:57] LABS: HEMATOCRIT 30.8 % (38.0-50.0); HEMOGLOBIN 9.8 G/DL (12.5-16.6); MCH 27.7 PG (29.0-34.0); MCHC 31.8 G/DL (30.0-36.0); PLATELET COUNT 217 K/uL (156-360); RBC DIS.WIDTH-CV 15.8 % (11.8-14.6); RBC DIS.WIDTH-SD 50.4 % (39-53); RED BLOOD COUNT 3.54 M/uL (4.00-5.50); WHITE BLOOD COUNT 5.9 K/uL (4.1-10.2)
[2017-11-12 06:34] LABS: CHLORIDE 109 MEQ/L (99-109); CREATININE 1.2 MG/DL (0.6-1.3); GFR ESTIMATE (CALCULATED) > 59 mL/min/ (58.99-99999); GLUCOSE 118 mg/dL (70-99); POTASSIUM 3.5 MEQ/L (3.7-5.4); SODIUM 140 MEQ/L (136-147); UREA NITROGEN (BUN) 14 mg/dL (9-23)
[2017-11-12 08:05] VITALS: BP 148/62
[2017-11-12 11:52] VITALS: BP 144/58
[2017-11-12 16:02] VITALS: BP 140/70
[2017-11-12 20:15] VITALS: BP 144/88
[2017-11-12 23:54] VITALS: BP 140/78
[2017-11-13 08:32] VITALS: BP 130/74
[2017-11-13 15:41] VITALS: BP 126/88
[2017-11-13 19:46] LABS: C DIFF TOXIN NEGATIVE (NEGATIVE)
[2017-11-13 23:30] VITALS: BP 150/72
[2017-11-14 06:38] LABS: BASOPHIL (%) 0 % (0-1); EOSINOPHIL (%) 0.8 % (0-5); EOSINOPHIL COUNT 0.1 K/uL (0-0.3); HEMATOCRIT 32.3 % (38.0-50.0); HEMOGLOBIN 10.3 G/DL (12.5-16.6); LYMPHOCYTE (%) 10.3 % (15-42); LYMPHOCYTE COUNT 0.6 K/uL (1.0-2.8); MCHC 31.9 G/DL (30.0-36.0); MCV 87.8 FL (86-99); MONOCYTE (%) 10.1 % (3-12); MONOCYTE COUNT 0.6 K/uL (0-0.8); NEUTROPHIL (%) 77.8 % (45-76); NEUTROPHIL COUNT 4.8 K/uL (1.8-6.4); PLATELET COUNT 207 K/uL (156-360); RBC DIS.WIDTH-CV 15.7 % (11.8-14.6); RBC DIS.WIDTH-SD 50.8 % (39-53); RED BLOOD COUNT 3.68 M/uL (4.00-5.50); WHITE BLOOD COUNT 6.1 K/uL (4.1-10.2)
[2017-11-14 07:01] LABS: ALBUMIN 2.9 G/DL (3.2-4.8); CHLORIDE 110 MEQ/L (99-109); CREATININE 1.4 MG/DL (0.6-1.3); GFR ESTIMATE (CALCULATED) 51 mL/min/ (58.99-99999); GLUCOSE 128 mg/dL (70-99); POTASSIUM 3.6 MEQ/L (3.7-5.4); SODIUM 145 MEQ/L (136-147); UREA NITROGEN (BUN) 13 mg/dL (9-23)
[2017-11-14 07:57] VITALS: BP 146/71
[2017-11-14 15:40] VITALS: BP 134/62
[2017-11-14 19:32] VITALS: BP 159/73
[2017-11-14 23:34] VITALS: BP 150/72
[2017-11-15 07:35] VITALS: BP 133/71
[2017-11-15 15:58] VITALS: BP 142/72
[2017-11-15 23:30] VITALS: BP 145/79
[2017-11-16 07:54] VITALS: BP 124/85
[2017-11-16 14:02] LABS: C DIFF TOXIN ND (NEGATIVE)
[2017-11-16 16:01] VITALS: BP 140/82
[2017-11-16 19:47] VITALS: BP 135/78
[2017-11-16 23:35] VITALS: BP 145/76
[2017-11-17 07:25] VITALS: BP 161/81
[2017-11-17 16:24] VITALS: BP 150/80
[2017-11-17] MEDS ORDERED: Pepcid IV (18:38)
[2017-11-17] MEDS ORDERED: CIPRO250 MG PO (18:52)
[2017-11-17 20:39] VITALS: BP 146/67
[2017-11-18 01:40] VITALS: BP 150/70
[2017-11-18 04:37] VITALS: BP 150/70
[2017-11-18 08:57] VITALS: BP 173/90
[2017-11-18 16:30] VITALS: BP 151/79
== END 2017-11-18 17:13 | DRG 690 ==
LOC: EME 19:36 → 3EAST 11-12 00:49 → EDOF 11-12 00:49 → ENRESERV 11-12 01:25 → 3EAST 11-12 02:12
PROVIDERS: Emergency Medicine; Family Medicine Sports Medicine; Internal Medicine Gastroenterology
DX: N39.0 Urinary tract infection, site not specified (principal); K56.600 Partial intestinal obstruction, unspecified as to cause; A04.72 Enterocolitis due to Clostridium difficile, not specified as recurrent; B96.5 Pseudomonas (aeruginosa) (mallei) (pseudomallei) as the cause of diseases classified elsewhere; I12.9 Hypertensive chronic kidney disease with stage 1 through stage 4 chronic kidney disease, or unspecified chronic kidney disease; R33.9 Retention of urine, unspecified; E03.9 Hypothyroidism, unspecified; N40.1 Benign prostatic hyperplasia with lower urinary tract symptoms; Q43.8 Other specified congenital malformations of intestine; E78.5 Hyperlipidemia, unspecified; M19.90 Unspecified osteoarthritis, unspecified site; N18.2 Chronic kidney disease, stage 2 (mild); E66.9 Obesity, unspecified; Z68.27 Body mass index [BMI] 27.0-27.9, adult; K21.9 Gastro-esophageal reflux disease without esophagitis; D64.9 Anemia, unspecified; F41.9 Anxiety disorder, unspecified; Z96.642 Presence of left artificial hip joint
CPT/HCPCS: 71045; 74018; 74019; 74022; 74177; 80048; 80053; 80069; 81003; 83605; 83690; 84484; 85025; 85027; 85610; 86850; 86900; 86901; 87077; 87086 GA; 87186; 87493; 93005; 94640; 97530 GP; 99281; 99285; J0692; J2270; J3480; J7120; S0028

== ENCOUNTER 2017-11-21 09:47 | Inpatient (IN) | payer OTHER ==
[~2017-11-21] VITALS: Ht 170.2 cm; Wt 104.4 kg
[~2017-11-21 09:47] MED LIST changes: +CIPRO250 MG PO; +KLOR-CON M1010 MEQ PO; +Pepcid IV; +SIMETHICONE80 MG PO
[2017-11-21 10:13] LABS: BASOPHIL (%) 0.2 % (0-1); EOSINOPHIL (%) 0 % (0-5); HEMATOCRIT 34.5 % (38.0-50.0); HEMOGLOBIN 11.4 G/DL (12.5-16.6); IMMATURE GRANULOCYTE (%) 0.8 % (0.0-0.7); LYMPHOCYTE (%) 3.2 % (15-42); LYMPHOCYTE COUNT 0.4 K/uL (1.0-2.8); MCH 28.5 PG (29.0-34.0); MCV 86.3 FL (86-99); MONOCYTE (%) 5.9 % (3-12); MONOCYTE COUNT 0.8 K/uL (0-0.8); NEUTROPHIL (%) 89.9 % (45-76); NEUTROPHIL COUNT 12.6 K/uL (1.8-6.4); PLATELET COUNT 183 K/uL (156-360); RBC DIS.WIDTH-CV 15.9 % (11.8-14.6); RBC DIS.WIDTH-SD 49.5 % (39-53)
[2017-11-21 10:18] LABS: INTER. NORMALIZED RATIO 1.2
[2017-11-21 10:20] LABS: ALBUMIN 3.3 g/dL (3.2-4.8)
[2017-11-21 10:21] LABS: CHLORIDE 99 mEq/L (99-109); POTASSIUM 3.4 mEq/L (3.7-5.4); SODIUM 134 mEq/L (136-147)
[2017-11-21 10:23] LABS: GLUCOSE 149 mg/dL (70-99); TOTAL PROTEIN 6.8 g/dL (6.4-8.3)
[2017-11-21 10:25] LABS: TOTAL BILIRUBIN 0.6 mg/dL (0.0-1.0)
[2017-11-21 10:26] LABS: ALKALINE PHOSPHATASE 61 IU/L (3-129)
[2017-11-21 10:27] LABS: CREATININE 1.4 mg/dL (0.6-1.3); GFR ESTIMATE (CALCULATED) 51 mL/min/ (58.99-99999)
[2017-11-21 10:28] LABS: UREA NITROGEN (BUN) 11 mg/dL (9-23)
[2017-11-21 10:29] LABS: AST (GOT) 24 IU/L (2-34)
[2017-11-21 10:30] LABS: ALT (GPT) 24 IU/L (3-49); LIPASE 4 U/L (1.0-51.0)
[2017-11-21 10:57] LABS: APPEARANCE SL.HAZY ((CLEAR)); BILIRUBIN NEGATIVE; BLOOD MODERATE; COLOR YELLOW ((YELLOW)); GLUCOSE (STRIP) 50; KETONES NEGATIVE; LEUKOCYTES MODERATE; NITRITE NEGATIVE; PROTEIN (STRIP) 100; SPECIFIC GRAVITY 1.018 (1.000-1.030); UROBILINOGEN 0.2 MG/DL (0.2-1.0)
[2017-11-21 11:06] LABS: BACTERIA RARE /HPF; EPITHELIAL CELLS RARE /HPF; HYALINE CASTS 0-5 /LPF; MUCUS TRACE /LPF; WHITE BLOOD CELLS TNTC /HPF (0-5)
[2017-11-21] MEDS ORDERED: TOPROL XL50 MG PO (12:39)
[2017-11-21 17:23] VITALS: BP 101/57
[2017-11-21 19:06] LABS: HEMATOCRIT 33.3 % (38.0-50.0); HEMOGLOBIN 10.8 G/DL (12.5-16.6); MCV 88.1 FL (86-99)
[2017-11-21 19:41] VITALS: BP 122/63
[2017-11-21 23:13] VITALS: BP 141/74
[2017-11-22 00:40] LABS: HEMATOCRIT 30.7 % (38.0-50.0); HEMOGLOBIN 10.4 G/DL (12.5-16.6); MCV 85.5 FL (86-99)
[2017-11-22 03:48] VITALS: BP 128/69
[2017-11-22 06:48] LABS: HEMOGLOBIN 10.7 G/DL (12.5-16.6); MCH 27.7 PG (29.0-34.0); MCHC 32.4 G/DL (30.0-36.0); MCV 85.5 FL (86-99); PLATELET COUNT 150 K/uL (156-360); RBC DIS.WIDTH-CV 16.3 % (11.8-14.6); RBC DIS.WIDTH-SD 50.5 % (39-53); RED BLOOD COUNT 3.86 M/uL (4.00-5.50)
[2017-11-22 07:03] LABS: ALBUMIN 2.6 G/DL (3.2-4.8); ALKALINE PHOSPHATASE 36 IU/L (3-129); ALT (GPT) 14 IU/L (3-49); AST (GOT) 18 IU/L (2-34); CHLORIDE 104 MEQ/L (99-109); GLUCOSE 212 mg/dL (70-99); POTASSIUM 3.4 MEQ/L (3.7-5.4); SODIUM 135 MEQ/L (136-147); TOTAL BILIRUBIN 0.6 MG/DL (0.0-1.0); TOTAL PROTEIN 5.2 G/DL (6.4-8.3)
[2017-11-22 07:04] LABS: GFR ESTIMATE (CALCULATED) 34 mL/min/ (58.99-99999); UREA NITROGEN (BUN) 22 mg/dL (9-23)
[2017-11-22 07:07] LABS: ABS NEUTROPHIL COUNT 8.9; ANISOCYTOSIS 1+; EOSINOPHIL ABS CT 0.1; EOSINOPHILS 0.9 % (0-5.0); PLAT.SUFFICIENCY DECREASED; POIKILOCYTOSIS 1+; SEG.NEUTROPHILS 46.1 % (46.0-76.0)
[2017-11-22 08:36] VITALS: BP 123/80
[2017-11-22 09:28] LABS: APPEARANCE SL.HAZY ((CLEAR)); BILIRUBIN NEGATIVE; BLOOD MODERATE; COLOR AMBER ((YELLOW)); GLUCOSE (STRIP) 50; KETONES 5; LEUKOCYTES TRACE; NITRITE NEGATIVE; PROTEIN (STRIP) 100; UROBILINOGEN 0.2 MG/DL (0.2-1.0)
[2017-11-22 09:49] LABS: EPITHELIAL CELLS 1+ /HPF
[2017-11-22 09:51] LABS: BACTERIA 2+ /HPF; COARSE GRANULAR CASTS 0-5 /LPF; HYALINE CASTS 0-5 /LPF; MUCUS RARE /LPF; UCUL ADDED? YES
[2017-11-22 11:36] VITALS: BP 121/65
[2017-11-22 12:21] LABS: HEMATOCRIT 31.4 % (38.0-50.0); HEMOGLOBIN 10.5 G/DL (12.5-16.6); MCV 84.9 FL (86-99)
[2017-11-22 15:25] VITALS: BP 101/57
[2017-11-22 23:44] VITALS: BP 118/60
[2017-11-23 01:13] LABS: C DIFF TOXIN POSITIVE (NEGATIVE)
[2017-11-23 06:29] LABS: HEMOGLOBIN 10.7 G/DL (12.5-16.6); MCH 28.2 PG (29.0-34.0); MCHC 33.4 G/DL (30.0-36.0); MCV 84.4 FL (86-99); RBC DIS.WIDTH-CV 16.6 % (11.8-14.6); RBC DIS.WIDTH-SD 50.9 % (39-53); RED BLOOD COUNT 3.79 M/uL (4.00-5.50); WHITE BLOOD COUNT 7.4 K/uL (4.1-10.2)
[2017-11-23 06:39] LABS: CHLORIDE 102 MEQ/L (99-109); CREATININE 2.8 MG/DL (0.6-1.3); GFR ESTIMATE (CALCULATED) 23 mL/min/ (58.99-99999); GLUCOSE 149 mg/dL (70-99); POTASSIUM 4.7 MEQ/L (3.7-5.4); SODIUM 133 MEQ/L (136-147); UREA NITROGEN (BUN) 43 mg/dL (9-23)
[2017-11-23 07:04] LABS: ABS NEUTROPHIL COUNT 6.5; ANISOCYTOSIS 1+; ATYPICAL LYMPHOCYTE 0.9 %; BAND NEUTROPHILS 46.1 % (0-8.0); BURR CELLS 1+; EOSINOPHIL ABS CT 0; LYMPHOCYTES 3.5 % (15.0-45.0); METAMYELOCYTES 1.7 %; MONOCYTES 6.1 % (0-9.0); OVALOCYTES 1+; PLAT.SUFFICIENCY ADEQUATE; PLATELET CLUMPS PRESENT - PLATELET COUNT APPEARS ADQ.; POIKILOCYTOSIS 3+; SEG.NEUTROPHILS 41.7 % (46.0-76.0)
[2017-11-23 07:05] LABS: PLATELET COUNT ND K/uL (156-360)
[2017-11-23 07:17] VITALS: BP 106/62
[2017-11-23 15:41] VITALS: BP 93/52
[2017-11-23 16:43] VITALS: BP 108/60
[2017-11-23 21:49] VITALS: BP 88/42
[2017-11-23 23:00] LABS: PCO2 24 mm Hg (35-45); PO2 66 mm Hg (80-100); pH 7.47 (7.35-7.45)
[2017-11-23 23:01] LABS: BASE EXCESS -4.9 mEq/L (-3 to +3); BICARBONATE 17.5 mEq/L (22-26); CARBOXY HGB 1.1 % (0-5); COMMENTS - BLOOD GASES C+A+; DEVICE ROOM AIR; METHEMOGLOBIN 1.4 % (0-1.5); SITE LR
[2017-11-23 23:45] VITALS: BP 95/42
[2017-11-23 23:57] LABS: CHLORIDE 104 mEq/L (99-109); POTASSIUM 5.4 mEq/L (3.7-5.4); SODIUM 131 mEq/L (136-147)
[2017-11-23 23:59] LABS: GLUCOSE 144 mg/dL (70-99)
[2017-11-24] VITALS (63 sets, daily range): BP systolic 50–129; BP diastolic 36–99
[2017-11-24 00:03] LABS: CREATININE 3.1 mg/dL (0.6-1.3); GFR ESTIMATE (CALCULATED) 20 mL/min/ (58.99-99999)
[2017-11-24 00:04] LABS: UREA NITROGEN (BUN) 57 mg/dL (9-23)
[2017-11-24 00:11] LABS: TROP-I INTERPRETATION NEGATIVE; TROPONIN-I 0.03 ng/mL (0.0-0.30)
[2017-11-24 04:41] LABS: HEMATOCRIT 27.9 % (38.0-50.0); HEMOGLOBIN 9.4 G/DL (12.5-16.6); MCH 28.3 PG (29.0-34.0); MCHC 33.7 G/DL (30.0-36.0); PLATELET COUNT 106 K/uL (156-360); RBC DIS.WIDTH-CV 16.6 % (11.8-14.6); RBC DIS.WIDTH-SD 51.5 % (39-53); RED BLOOD COUNT 3.32 M/uL (4.00-5.50)
[2017-11-24 04:47] LABS: ALBUMIN 2.3 g/dL (3.2-4.8); CHLORIDE 105 mEq/L (99-109); POTASSIUM 5.2 mEq/L (3.7-5.4); SODIUM 134 mEq/L (136-147)
[2017-11-24 04:50] LABS: GLUCOSE 138 mg/dL (70-99); TOTAL PROTEIN 4.1 g/dL (6.4-8.3)
[2017-11-24 04:52] LABS: TOTAL BILIRUBIN 0.4 mg/dL (0.0-1.0)
[2017-11-24 04:54] LABS: ALKALINE PHOSPHATASE 45 IU/L (3-129); CREATININE 3.1 mg/dL (0.6-1.3); GFR ESTIMATE (CALCULATED) 20 mL/min/ (58.99-99999); UREA NITROGEN (BUN) 57 mg/dL (9-23)
[2017-11-24 04:55] LABS: AST (GOT) 73 IU/L (2-34)
[2017-11-24 04:56] LABS: ALT (GPT) 44 IU/L (3-49)
[2017-11-24 05:57] LABS: ABS NEUTROPHIL COUNT 5.4; BURR CELLS 1+; EOSINOPHIL ABS CT 0; OVALOCYTES 1+; PLAT.SUFFICIENCY DECREASED
[2017-11-24 10:30] LABS: COMMENTS - BLOOD GASES A+C+; DEVICE PB 840; FI02 100 %; MECHANICAL RATE 20 resp/min; MODE AC; PCO2 30 mm Hg (35-45); PEEP 5 CM/H20; PO2 260 mm Hg (80-100); SITE RR; TIDAL VOLUME 500 ML; TOTAL RESP RATE 24 resp/min; pH 7.39 (7.35-7.45)
[2017-11-24 10:31] LABS: BASE EXCESS -5.9 mEq/L (-3 to +3); BICARBONATE 18.2 mEq/L (22-26); CARBOXY HGB 0.4 % (0-5); METHEMOGLOBIN 1.9 % (0-1.5); O2 SATURATION (CALCULATED) 99 % (95-99)
[2017-11-24 11:43] LABS: TRIGLYCERIDES 227 MG/DL (Normal: <150)
[2017-11-24 13:15] LABS: HIGH-SENS C-REACTIVE PROTEIN > 8.00 MG/DL (0.02-0.20)
[2017-11-24 15:02] LABS: THYROTROPIN (TSH) 2.4 MIU/L (0.4-5.5)
[2017-11-24 16:44] LABS: DIGOXIN < 0.3 ng/mL (0.8-2.0)
[2017-11-24 18:09] LABS: THYROTROPIN (TSH) 2.4 MIU/L (0.4-5.5)
[2017-11-24 18:18] LABS: DIGOXIN 0.6 ng/mL (0.8-2.0)
[2017-11-25] VITALS (28 sets, daily range): BP systolic 71–125; BP diastolic 48–89
[2017-11-25 06:03] LABS: CREATINE KINASE 43 IU/L (1-294)
[2017-11-25 06:15] LABS: HIGH-SENS C-REACTIVE PROTEIN > 8.00 MG/DL (0.02-0.20)
[2017-11-25 11:43] LABS: INTER. NORMALIZED RATIO 1.3
[2017-11-25 11:46] LABS: PTT 45.6 SEC (25-37)
[2017-11-25 11:51] LABS: HEMATOCRIT 28.6 % (38.0-50.0); HEMOGLOBIN 9.6 G/DL (12.5-16.6); MCH 28.3 PG (29.0-34.0); MCHC 33.6 G/DL (30.0-36.0); MCV 84.4 FL (86-99); NRBC (%) 0.2 /100 WBC (0-0); PLATELET COUNT 100 K/uL (156-360); RBC DIS.WIDTH-CV 17.1 % (11.8-14.6); RBC DIS.WIDTH-SD 52.7 % (39-53); RED BLOOD COUNT 3.39 M/uL (4.00-5.50)
[2017-11-25 12:22] LABS: ALBUMIN 1.8 G/DL (3.2-4.8); CHLORIDE 100 MEQ/L (99-109); CREATININE 2.8 MG/DL (0.6-1.3); GFR ESTIMATE (CALCULATED) 23 mL/min/ (58.99-99999); MAGNESIUM 1.3 mg/dl (1.3-2.7); PHOSPHORUS 2.6 mg/dL (2.5-4.9); POTASSIUM 4.3 MEQ/L (3.7-5.4); SODIUM 133 MEQ/L (136-147); UREA NITROGEN (BUN) 57 mg/dL (9-23)
[2017-11-25 12:24] LABS: ABS NEUTROPHIL COUNT 8.2; ANISOCYTOSIS 1+; BAND NEUTROPHILS 16.4 % (0-8.0); EOSINOPHIL ABS CT 0; LYMPHOCYTES 5.2 % (15.0-45.0); METAMYELOCYTES 3.4 %; MONOCYTES 7.8 % (0-9.0); MYELOCYTES 1.7 %; NUCLEATED RBC'S 0.9; OVALOCYTES 1+; PLAT.SUFFICIENCY DECREASED; POIKILOCYTOSIS 1+; SEG.NEUTROPHILS 65.5 % (46.0-76.0)
[2017-11-25 12:29] LABS: ALKALINE PHOSPHATASE 79 IU/L (3-129); ALT (GPT) 56 IU/L (3-49); AST (GOT) 79 IU/L (2-34); GLUCOSE 223 mg/dL (70-99); TOTAL PROTEIN 3.9 G/DL (6.4-8.3)
[2017-11-25 15:52] LABS: SITE LR
[2017-11-25 15:53] LABS: BICARBONATE 21.5 mEq/L (22-26); CARBOXY HGB 0.9 % (0-5); COMMENTS - BLOOD GASES A+C+; DEVICE PB 840; FI02 40 %; MECHANICAL RATE 20 resp/min; METHEMOGLOBIN 1.9 % (0-1.5); MODE AC; O2 SATURATION (CALCULATED) 98.5 % (95-99); PCO2 31 mm Hg (35-45); PEEP 5 CM/H20; PO2 99 mm Hg (80-100); TIDAL VOLUME 500 ML; TOTAL RESP RATE 22 resp/min; pH 7.45 (7.35-7.45)
[2017-11-25 15:54] LABS: BASE EXCESS -1.9 mEq/L (-3 to +3)
[2017-11-26] VITALS (25 sets, daily range): BP systolic 60–122; BP diastolic 35–71
[2017-11-27] VITALS (16 sets, daily range): BP systolic 84–130; BP diastolic 48–86
[2017-11-27 06:01] LABS: HEMATOCRIT 24.2 % (38.0-50.0); HEMOGLOBIN 8.1 G/DL (12.5-16.6); MCH 27.7 PG (29.0-34.0); MCHC 33.5 G/DL (30.0-36.0); MCV 82.9 FL (86-99); PLATELET COUNT 77 K/uL (156-360); RBC DIS.WIDTH-CV 16.8 % (11.8-14.6); RBC DIS.WIDTH-SD 50.3 % (39-53); RED BLOOD COUNT 2.92 M/uL (4.00-5.50)
[2017-11-27 06:35] LABS: CHLORIDE 96 MEQ/L (99-109); CREATINE KINASE 62 IU/L (1-294); GLUCOSE 162 mg/dL (70-99); SODIUM 135 MEQ/L (136-147); UREA NITROGEN (BUN) 46 mg/dL (9-23)
[2017-11-27 06:36] LABS: CREATININE 2.2 MG/DL (0.6-1.3); GFR ESTIMATE (CALCULATED) 30 mL/min/ (58.99-99999); POTASSIUM 3.3 MEQ/L (3.7-5.4)
[2017-11-28] VITALS (22 sets, daily range): BP systolic 86–134; BP diastolic 47–69
[2017-11-28 05:14] LABS: HEMATOCRIT 24.7 % (38.0-50.0); HEMOGLOBIN 8.5 G/DL (12.5-16.6); MCH 28.5 PG (29.0-34.0); MCHC 34.4 G/DL (30.0-36.0); MCV 82.9 FL (86-99); PLATELET COUNT 84 K/uL (156-360); RBC DIS.WIDTH-CV 16.9 % (11.8-14.6); RBC DIS.WIDTH-SD 50.7 % (39-53); RED BLOOD COUNT 2.98 M/uL (4.00-5.50); WHITE BLOOD COUNT 10.2 K/uL (4.1-10.2)
[2017-11-28 05:25] LABS: ALBUMIN 2.8 g/dL (3.2-4.8); CHLORIDE 95 mEq/L (99-109); POTASSIUM 3.5 mEq/L (3.7-5.4); SODIUM 134 mEq/L (136-147)
[2017-11-28 05:27] LABS: GLUCOSE 147 mg/dL (70-99)
[2017-11-28 05:31] LABS: CREATININE 1.9 mg/dL (0.6-1.3); GFR ESTIMATE (CALCULATED) 36 mL/min/ (58.99-99999)
[2017-11-28 05:32] LABS: UREA NITROGEN (BUN) 41 mg/dL (9-23)
[2017-11-28 05:33] LABS: AST (GOT) 79 IU/L (2-34)
[2017-11-28 05:34] LABS: ALKALINE PHOSPHATASE 436 IU/L (3-129); ALT (GPT) 40 IU/L (3-49); CREATINE KINASE 28 IU/L (1-294); TOTAL BILIRUBIN 3.9 mg/dL (0.0-1.0)
[2017-11-28 06:01] LABS: ABS NEUTROPHIL COUNT 8.7; ACANTHOCYTES 1+; ANISOCYTOSIS 1+; BAND NEUTROPHILS 3.5 % (0-8.0); EOSINOPHIL ABS CT 0; HYPOCHROMASIA 1+; LYMPHOCYTES 6.2 % (15.0-45.0); METAMYELOCYTES 0.9 %; MONOCYTES 6.2 % (0-9.0); MYELOCYTES 1.8 %; NUCLEATED RBC'S 0.9; OVALOCYTES 1+; PLAT.SUFFICIENCY ADEQUATE; POIKILOCYTOSIS 1+; SEG.NEUTROPHILS 81.4 % (46.0-76.0); TEAR DROP CELLS 1+
[2017-11-28 17:34] LABS: CHLORIDE 98 MEQ/L (99-109); CREATININE 1.7 MG/DL (0.6-1.3); GFR ESTIMATE (CALCULATED) 41 mL/min/ (58.99-99999); GLUCOSE 161 mg/dL (70-99); POTASSIUM 3.4 MEQ/L (3.7-5.4); SODIUM 133 MEQ/L (136-147); UREA NITROGEN (BUN) 38 mg/dL (9-23)
[2017-11-29] VITALS (29 sets, daily range): BP systolic 82–173; BP diastolic 43–856
[2017-11-29 06:15] LABS: ALBUMIN 2.5 G/DL (3.2-4.8); ALT (GPT) 27 IU/L (3-49); AST (GOT) 52 IU/L (2-34); CHLORIDE 99 MEQ/L (99-109); CREATININE 1.6 MG/DL (0.6-1.3); GFR ESTIMATE (CALCULATED) 44 mL/min/ (58.99-99999); GLUCOSE 165 mg/dL (70-99); POTASSIUM 3.3 MEQ/L (3.7-5.4); SODIUM 133 MEQ/L (136-147); TOTAL PROTEIN 3.8 G/DL (6.4-8.3); UREA NITROGEN (BUN) 34 mg/dL (9-23)
[2017-11-29 06:16] LABS: ALKALINE PHOSPHATASE 380 IU/L (3-129); TOTAL BILIRUBIN 5.4 MG/DL (0.0-1.0)
[2017-11-30] VITALS (30 sets, daily range): BP systolic 63–128; BP diastolic 39–71
[2017-11-30 05:57] LABS: CHLORIDE 100 MEQ/L (99-109); CREATININE 1.9 MG/DL (0.6-1.3); GFR ESTIMATE (CALCULATED) 36 mL/min/ (58.99-99999); GLUCOSE 155 mg/dL (70-99); SODIUM 132 MEQ/L (136-147); UREA NITROGEN (BUN) 33 mg/dL (9-23)
[2017-11-30 06:02] LABS: MAGNESIUM 1.7 mg/dl (1.3-2.7); POTASSIUM 4.5 MEQ/L (3.7-5.4)
[2017-11-30 07:18] LABS: HEMATOCRIT 21.9 % (38.0-50.0); MCH 27.9 PG (29.0-34.0); NRBC (%) 0.2 /100 WBC (0-0); PLATELET COUNT 86 K/uL (156-360); RBC DIS.WIDTH-CV 17.2 % (11.8-14.6); RBC DIS.WIDTH-SD 53.7 % (39-53); RED BLOOD COUNT 2.51 M/uL (4.00-5.50); WHITE BLOOD COUNT 13.4 K/uL (4.1-10.2)
[2017-11-30 07:36] LABS: MCV 87.3 FL (86-99)
[2017-11-30 08:46] LABS: ABS NEUTROPHIL COUNT 11.3; ANISOCYTOSIS 2+; BASOPH.STIPPLING 1+; EOSINOPHIL ABS CT 0.3; EOSINOPHILS 2.6 % (0-5.0); HYPOCHROMASIA 3+; METAMYELOCYTES 0.9 %; MICROCYTOSIS 2+; MONOCYTES 4.4 % (0-9.0); MYELOCYTES 0.9 %; OVALOCYTES 1+; PLAT.SUFFICIENCY DECREASED; POIKILOCYTOSIS 3+; POLYCHROMASIA 1+; SEG.NEUTROPHILS 63.2 % (46.0-76.0); TARGET CELLS 2+; TEAR DROP CELLS 1+
[2017-12-01] VITALS (17 sets, daily range): BP systolic 59–91; BP diastolic 34–51
[2017-12-02 00:01] VITALS: BP 91/48
[2017-12-02 02:01] VITALS: BP 83/47
[2017-12-02 03:51] VITALS: BP 106/59
[2017-12-04 19:29] VITALS: BP 106/64
[2017-12-05 10:51] VITALS: BP 106/64
[2017-12-05] MEDS ORDERED: morphine Sulfate IV (15:53)
[2017-12-05] MEDS ORDERED: ATROPINE 1100 DROP/5 PO (15:54)
== END 2017-12-05 17:48 | disposition hospice, home (50) | DRG 870 ==
LOC: EME → EDBD 09:47 → EDOF 14:25 → 3EAST 14:25 → ENRESERV 14:27 → 3EAST 16:37 → ENRESERV 11-23 23:17 → 4WEST 11-23 23:20 → ENRESERV 12-01 10:36 → CANRESERV 12-01 12:34 → ENRESERV 12-02 00:51 → 5EAST 12-02 03:17
PROVIDERS: Emergency Medicine; Family Medicine Sports Medicine; Hospitalist; Internal Medicine; Internal Medicine Critical Care Medicine; Internal Medicine Infectious Disease; Obstetrics & Gynecology; Specialist; Surgery
DX: A41.4 Sepsis due to anaerobes (principal); K92.0 Hematemesis; R65.21 Severe sepsis with septic shock; G93.41 Metabolic encephalopathy; J96.01 Acute respiratory failure with hypoxia; A04.71 Enterocolitis due to Clostridium difficile, recurrent; N39.0 Urinary tract infection, site not specified; E87.2 Acidosis; Z51.5 Encounter for palliative care; Z66 Do not resuscitate; N17.9 Acute kidney failure, unspecified; J98.11 Atelectasis; N13.30 Unspecified hydronephrosis; N13.8 Other obstructive and reflux uropathy; Z99.11 Dependence on respirator [ventilator] status; F05 Delirium due to known physiological condition; B96.5 Pseudomonas (aeruginosa) (mallei) (pseudomallei) as the cause of diseases classified elsewhere; D64.9 Anemia, unspecified; E03.9 Hypothyroidism, unspecified; E78.5 Hyperlipidemia, unspecified; E86.0 Dehydration; E87.70 Fluid overload, unspecified; F41.9 Anxiety disorder, unspecified; N18.3 Chronic kidney disease, stage 3 (moderate); I12.9 Hypertensive chronic kidney disease with stage 1 through stage 4 chronic kidney disease, or unspecified chronic kidney disease; I48.2 Chronic atrial fibrillation; I51.7 Cardiomegaly; J84.10 Pulmonary fibrosis, unspecified; K21.0 Gastro-esophageal reflux disease with esophagitis; K27.9 Peptic ulcer, site unspecified, unspecified as acute or chronic, without hemorrhage or perforation; M19.90 Unspecified osteoarthritis, unspecified site; N40.1 Benign prostatic hyperplasia with lower urinary tract symptoms; R31.29 Other microscopic hematuria; R32 Unspecified urinary incontinence; N32.0 Bladder-neck obstruction; R33.8 Other retention of urine; Z96.642 Presence of left artificial hip joint; D69.59 Other secondary thrombocytopenia; E66.9 Obesity, unspecified; Z87.01 Personal history of pneumonia (recurrent); Z87.440 Personal history of urinary (tract) infections; Z68.28 Body mass index [BMI] 28.0-28.9, adult; Z82.49 Family history of ischemic heart disease and other diseases of the circulatory system; Z82.61 Family history of arthritis
CPT/HCPCS: 31720; 36600; 71045; 74018; 74176; 80048; 80048 91; 80053; 80162; 81003; 82140; 82330; 82436; 82533 91; 82550; 82550 91; 82570; 82803; 82948; 83605; 83690; 83735; 84100; 84133; 84145 90; 84300; 84443; 84478; 84484; 85014; 85018; 85025; 85027; 85610; 85730; 86141; 87040; 87070; 87077; 87086; 87186; 87205; 87493; 87641; 92610 GN; 93005; 94002; 94003; 94640; 94640 76; 94799; 99202; 99281; 99285; C1751; C9113; J0282; J0692; J0696; J1160; J1644; J1815; J1940; J2060; J2270; J2370; J2405; J2704; J3010; J3475; J3480; J7030; J7040; J7050; J7070; J7120; P9047; S0028; S0030